=== PATIENT | female | born 1995 | race Caucasian/White ===

== ENCOUNTER → 2020-08-14 11:24 | Outpatient (REF) | payer OTHER, SELFPAY | LOC: ANHLAB 11:24 | PROVIDERS: PCP Internal Medicine; Visit Provider Nurse Practitioner | DX: D23.4 Other benign neoplasm of skin of scalp and neck (principal) | CPT/HCPCS: 88305 ==

== ENCOUNTER 2021-12-08 11:16 | Emergency (ER) | payer BC, OTHER, SELFPAY ==
--- NOTE | 2021-12-08 11:23 | ED.GENADULT ---
HPI - General Adult General Chief complaint: Dizziness Stated complaint: dizziness Time Seen by Provider: 12/08/21 11:38 Source: patient Mode of arrival: ambulatory Limitations: no limitations History of Present Illness HPI narrative: 26-year-old female patient presents to the [facility] with complaints of dizziness that started this morning whenever she turned over onto her left side. Patient states she was able to lay on her back the dizziness did start to subside and she was able to get up and go the bathroom. Patient states that she when she went back to bed she turned over on her right side was able to go back to sleep. Patient states when she got up she was doing much better however when she went to go get in the car to get to [place] she turned her head to the left again and the dizziness started again. Patient denies any vision changes. Denies any headaches. Denies any chest pain, shortness of breath. Denies any numbness or tingling to 1 side of the body or the other. Denies any recent viral illnesses or ear pain. Denies any recent seasonal allergies that she is aware of. Related Data Home Medications Medication Instructions Recorded Confirmed amlodipine 5 mg tablet (Norvasc) 5 mg PO DAILY 12/08/21 12/08/21 levonorgestrel 20.1 mcg/24 hrs (6 1 device intrauterine ONCE 12/08/21 12/08/21 yrs) 52 mg intrauterine device (Liletta) levothyroxine 50 mcg tablet 1 tablet DAILY 12/08/21 12/08/21 lorazepam 0.5 mg tablet (Ativan) 0.5 mg PO DAILY 12/08/21 12/08/21 paroxetine HCl 20 mg tablet (Paxil) 20 mg PO DAILY 12/08/21 12/08/21 Allergies Allergy/AdvReac Type Severity Reaction Status Date / Time lidocaine Allergy Unknown respirtory Verified 12/08/21 11:36 arrest midazolam Allergy Unknown unknown Verified 12/08/21 11:36 Review of Systems Review of Systems: CONSTITUTIONAL: Denies fever, chills, or sweats. EYES: Denies visual changes, redness, or discharge. ENT: Denies rhinorrhea, congestion, sore throat, or otalgia. CARDIOVASCULAR: Denies chest pain, palpitations, or edema. RESPIRATORY: Denies cough or dyspnea. GASTROINTESTINAL: Denies abdominal pain, nausea, vomiting, or diarrhea. GENITOURINARY: Denies dysuria or hematuria. SKIN: Denies rash or itching. MUSCULOSKELETAL: Denies back pain, joint pain, or myalgia. NEUROLOGIC: Denies headache, numbness, or weakness. Positive dizziness PSYCHIATRIC: Denies anxiety or depression. [facility] Past Medical History Medical History (Updated 12/08/21 @ 11:48 by NORMA Adam) Hypertension Hypothyroidism Obesity Respiratory anomaly Left lung decortication Social History Social History Smoking status: Never smoker Second hand tobacco smoke exposure: No Alcohol intake: never Substance use: never Substance use type: does not use Comments At the time of my signature I agree with nursing past medical history, surgical, social, and family history. There is no relevant family history pertinent to the presenting complaint. Exam Narrative: GENERAL: Well-appearing, well-nourished, and in no acute distress. HEAD: Normocephalic, atraumatic. EYES: PERRLA and EOMI. ENT: Nares clear, no rhinorrhea or epistaxis. Mucous membranes moist. Bilateral TMs are clear with no erythema or foreign bodies to the canal. Posterior pharynx no erythema, tonsillar lodgment, exudates or lesions present. NECK: Supple. No lymphadenopathy CHEST: Clear to auscultation. No respiratory distress. HEART: Regular rate and rhythm. No murmur heard. Normal peripheral pulses. ABDOMEN: Soft, nontender, nondistended, normal active bowel sounds. EXTREMITIES: Normal range of motion. No edema. SKIN: Warm, dry, no rash. NEURO: Alert and oriented x4, GCS 15. Cranial nerves II through XII grossly intact. No focal neurological deficits. Normal muscle strength and tone. Normal deep tendon reflexes. Negative Babinski, normal finger to nose coordination
[2021-12-08 11:29] VITALS: BP 132/96; PULSE 65; RESP 18; TEMP 36.6; O2SAT 98
== END 2021-12-08 11:52 | disposition home or self-care (01) ==
PROVIDERS: Emergency Provider Nurse Practitioner Family; PCP Internal Medicine
DX: H81.10 Benign paroxysmal vertigo, unspecified ear (principal); I10 Essential (primary) hypertension; E03.9 Hypothyroidism, unspecified; E66.9 Obesity, unspecified; Z68.41 Body mass index [BMI] 40.0-44.9, adult
CPT/HCPCS: 99213; G0463